=== PATIENT | male | born 1975 | race Caucasian/White ===

== ENCOUNTER 2017-12-18 18:59 | Observation (INO) ==
--- OUTSIDE RECORDS SUMMARY | 2017-12-18 19:23 | External Medical Summary ---
:1975 Author Organization e[employer]Works Care Team Providers Name Role Phone Lynsey Tang Provider Role Unavailable Allergies, Adverse Reactions, Alerts Substance Reaction Event Type sulfa muscle cramps Non Drug Allergy Problems Problem Type Condition Code Onset Dates Condition Status Problem Excessive daytime sleepiness G47.19 Active Problem Reactive airway disease, mild J45.20 Active intermittent, uncomplicated Problem Other chronic pain G89.29 Active Assessment Other chronic pain G89.29 Active Medications Medication Code System Code Instructions Start End Date Status Dosage Date ProAir HFA NDC 79859-02 108 (90 Base) Mar 05, 2 puffs as 51-85 MCG/ACT 2015 needed Inhalation every 4 hrs Nexium NDC 82830-28 20 MG Orally 1 capsule 20-31 Once a day as needed Hydrocodone-[place] NDC 96570-41 7.5-325 MG Jun 06, 1 tablet as taminophen 65-01 Orally every 6 2016 needed hrs Procedures Procedure Coding System Code Date OFFICE VISIT, EST-LOW COMPLEXITY (15 MIN.) CPT-4 86909 May 07, 2016 Vital Signs Date/Time: May 07, 2016 Temperature 98.3 F Height 72 in Weight 309.4 lbs Blood Pressure Diastolic 82 mm Hg Blood Pressure Systolic 130 mm Hg Cardiac Monitoring Heart Rate 85 /min BMI 41.96 Index Oximetry 97 % Respiratory Rate 18 /min Results No Known Results Summary Purpose eClinicalWorks Submission
--- OUTSIDE RECORDS SUMMARY | 2017-12-18 19:23 | External Medical Summary ---
:1975 Author Organization [employer] Care Team Providers Name Role Phone Lynsey Tang Provider Role Unavailable Allergies, Adverse Reactions, Alerts Substance Reaction Event Type sulfa muscle cramps Non Drug Allergy Problems Problem Type Condition Code Onset Dates Condition Status Assessment Reactive airway disease, mild J45.20 Active intermittent, uncomplicated Problem Excessive daytime sleepiness G47.19 Active Problem Reactive airway disease, mild J45.20 Active intermittent, uncomplicated Problem Other chronic pain G89.29 Active Assessment Excessive daytime sleepiness G47.19 Active Assessment Snoring R06.83 Active Assessment Low back pain M54.5 Active Assessment Other chronic pain G89.29 Active Medications Medication Code System Code Instructions Start End Date Status [place] [address]-72 108 (90 Base) Mar 05, 2 puffs as 51-85 MCG/ACT 2015 needed Inhalation every 4 hrs Tylenol NDC 65896-22 325 MG Orally 1 tablet as 96-60 every 6 hrs needed Nexium NDC 99773-66 20 MG Orally 1 capsule 20-31 Once a day as needed Hydrocodone-[place] NDC 61756-90 7.5-325 MG May 09, 1 tablet as taminophen 65-01 Orally every 6 2016 needed hrs Procedures Procedure Coding System Code Date OFFICE VISIT, EST-LOW COMPLEXITY (15 MIN.) CPT-4 75484 Apr 09, 2016 Vital Signs Date/Time: Apr 09, 2016 Temperature 98.7 F Height 72 in Weight 310.7 lbs Blood Pressure Diastolic 98 mm Hg Blood Pressure Systolic 140 mm Hg Cardiac Monitoring Heart Rate 96 /min BMI 42.13 Index Oximetry 98 % Respiratory Rate 18 /min Results No Known Results Summary Purpose eClinicalWorks Submission
--- OUTSIDE RECORDS SUMMARY | 2017-12-18 19:23 | External Medical Summary ---
:1975 Author Organization [employer] Care Team Providers Name Role Phone Lynsey Tang Provider Role Unavailable Allergies, Adverse Reactions, Alerts Substance Reaction Event Type sulfa muscle cramps Non Drug Allergy Problems Problem Type Condition Code Onset Dates Condition Status Assessment Other chronic pain G89.29 Active Assessment Elevated blood pressure reading R03.0 Active without diagnosis of hypertension Assessment Low back pain M54.5 Active Medications Medication Code System Code Instructions Start Date End Date Status Dosage [place] NDC 34498-541 7.5-325 MG Orally Feb 05Mar 07, 1 tablet as 1-30 every 8 hrs 2015 2015 needed Tylenol NDC 71154-129 325 MG Orally 1 tablet as 6-60 every 6 hrs needed Procedures Procedure Coding System Code Date OFFICE VISIT, EST-LOW COMPLEXITY (15 MIN.) CPT-4 20748 Feb 06, 2016 Vital Signs Date/Time: Feb 06, 2016 Temperature 99.9 F Height 72 in Weight 309.4 lbs Blood Pressure Diastolic 94 mm Hg Blood Pressure Systolic 152 mm Hg Cardiac Monitoring Heart Rate 100 /min BMI 41.96 Index Oximetry 98 % Results No Known Results Summary Purpose eClinicalWorks Submission
--- OUTSIDE RECORDS SUMMARY | 2017-12-18 19:23 | External Medical Summary ---
:1975 Author Organization [employer] Care Team Providers Name Role Phone Lynsey Tang Provider Role Unavailable Allergies No Known Allergies Problems Problem Type Condition Code Onset Dates Condition Status Problem Excessive daytime sleepiness G47.19 Active Problem Reactive airway disease, mild J45.20 Active intermittent, uncomplicated Problem Other chronic pain G89.29 Active Assessment Low back pain M54.5 Active Medications No Known Medications Procedures Procedure Coding System Code Date URINE DRUG SCREEN 3 CPT-4 46053 Apr 11, 2016 Results Name Result Date Reference Range Unit Abnormality Flag Urine Drug Screen 3 Summary Purpose eClinicalWorks Submission
--- OUTSIDE RECORDS SUMMARY | 2017-12-18 19:23 | External Medical Summary ---
:1975 Author Organization [employer]Works Care Team Providers Name Role Phone Lynsey Tang Provider Role Unavailable Allergies, Adverse Reactions, Alerts Substance Reaction Event Type sulfa muscle cramps Non Drug Allergy Problems Problem Type Condition Code Onset Dates Condition Status Assessment Other chronic pain G89.29 Active Assessment Reactive airway disease, mild J45.20 Active intermittent, uncomplicated Assessment Low back pain M54.5 Active Medications Medication Code System Code Instructions Start Date End Date Status Dosage Nexium NDC 14250-419 20 MG Orally Once 1 capsule 0-31 a day as needed Tylenol NDC 84810-574 325 MG Orally 1 tablet as 6-60 every 6 [place] [address] 108 (90 Base) Mar 05, 2 puffs as 1-85 MCG/ACT 2015 needed Inhalation every 4 [place] [address]-011 7.5-325 MG Orally Feb 05, Mar 07, 1 tablet as 1-30 every 8 hrs 2015 2016 needed Procedures Procedure Coding System Code Date OFFICE VISIT, EST-LOW COMPLEXITY (15 MIN.) CPT-4 60107 Mar 05, 2016 Vital Signs Date/Time: Mar 05, 2016 Temperature 98 F Height 72 in Weight 311.7 lbs Blood Pressure Diastolic 84 mm Hg Blood Pressure Systolic 140 mm Hg Cardiac Monitoring Heart Rate 88 /min BMI 42.27 Index Oximetry 98 % Respiratory Rate 18 /min Results No Known Results Summary Purpose eClinicalWorks Submission
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
[2017-12-18] MEDS ORDERED: SALINE FLUSH 10ml SYRINGE IVF PRN (20:17)
[2017-12-18] MEDS ORDERED: NS 1,000 ML IV ONE (20:18)
[2017-12-18] MEDS ORDERED: IBUPROFEN 800 MG TABLET PO ONE (21:09)
[2017-12-18] MEDS ORDERED: IOHEXOL 300mg/ml 100ml INJECTION ONE (21:20)
[2017-12-18] MEDS ORDERED: SALINE FLUSH 10ml SYRINGE ONE (21:20)
[2017-12-18 23:34] VITALS: BMI 46.0
[2017-12-18] MEDS: NS 1,000 ML IV SCH (23:40)
[2017-12-19] MEDS: CIPROFLOXACIN IVPB 400 MG/200 ML BAG IV SCH ×2 (00:13→12:11)
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
[2017-12-19] MEDS: NS 1,000 ML IV SCH ×3 (06:04→16:12)
--- NOTE | 2017-12-19 08:03 | CT Scan Report ---
Indication: fever, LLQ pain/urinary urgency without UTI. PROCEDURE: CT abdomen pelvis w con: Encounter: Initial Comparison: None Technique: Axial CT images were performed through the abdomen and pelvis after the administration of intravenous contrast. Coronal and sagittal two-dimensional reformats. Automated Exposure Control and Iterative Reconstruction dose reducing techniques were utilized. Contrast: Omnipaque 300 100 mL Findings: The lung bases are clear. Fatty infiltration of the liver without enhancing mass or bile duct dilatation. The gallbladder is contracted. The spleen, pancreas and adrenal glands are within normal limits. Small nonobstructing lower pole stone on the right. The kidneys are otherwise normal. Bladder is unremarkable. No evidence of a bowel obstruction. The appendix is normal. No ureteral stones. Bone windows are negative for acute process. Impression: No acute disease process seen. There is a preliminary report by [facility]. .
[2017-12-19 08:06] VITALS: RESP 18
[2017-12-19] MEDS ORDERED: IBUPROFEN 600 MG TABLET PO PRN (09:58)
[2017-12-19] MEDS ORDERED: HYDROCODONE/APAP 10 MG/325 MG TABLET PO PRN (12:10)
[2017-12-19 16:11] VITALS: BP 144/80; PULSE 71; TEMP 96.5; O2SAT 97
--- NOTE | 2017-12-19 17:38 | Discharge Summary ---
Discharge Summary- Blank Discharge Summary: Mr. Berger reported feeling improved late in the day such that he felt he could discharge home. He was urinating less frequently than earlier in the day and tolerating food. There's been no recurrent fever documented since admission nor recurrent tachycardia or tachypnea. Repeat UA demonstrated the urine to be slightly cloudy but sample was negative for nitrate and leukocyte esterase. Microscopic exam was not indicated. He was converted from IV to oral Cipro at 500 mg twice a day with initial course of 14 days. Discussed follow-up with Dr. Graham in one week to assess response and determine if course should be extended or urology follow-up coordinated. Hold home medications resumed including delirium which was not included on initial home medication list. Activities are unrestricted and diet regular although low-salt and low-fat intake recommended. He will continue CPAP as before. Discharge diagnosis: Acute prostatitis with sepsis
[2017-12-19] MEDS ORDERED: BUDESONIDE INH.SOLN 0.5mg/2ml NEB AEROSOL SCH (19:00)
[2017-12-19] MEDS ORDERED: MOMETASONE/FORMOTEROL 100/5 mcg INHALER ORAL INH SCH (19:00)
[2017-12-19] MEDS ORDERED: ARFORMOTEROL NEB 15mcg/2ml AEROSOL SCH (19:00)
[2017-12-19] MEDS ORDERED: ATORVASTATIN 20 MG TABLET PO SCH (21:00)
[2017-12-20] MEDS ORDERED: LISINOPRIL/HCTZ 20/12.5 MG TABLET PO SCH (09:00)
== END 2017-12-19 18:15 | disposition home or self-care (01) ==
LOC: EDHOLD 18:59 → ED 18:59 → SUATTDRO 22:37 → MED 23:20
PROVIDERS: ADMIT Internal Medicine; ATTEND Internal Medicine